=== PATIENT | female | born 1985 | race African-American/Black ===

== ENCOUNTER 2018-05-30 16:03 | Emergency (ER) | payer OTHER ==
[~2018-05-30] VITALS: Ht 157.5 cm; Wt 86.2 kg
--- NOTE | ~2018-05-30 | EKG ---
[address] [address] [facility] [employer] [address] ELECTROCARDIOGRAM REPORT Name: LUCILLE SANDY Room #: DEP Karen#: [id number] Admission: 05/30/18 Attend Phys: Discharge: 05/30/18 Date of : 81 Report #: [id number] THIS REPORT FOR: //name// [facility] ED Test Date: 2018-05-30 Test Time: 17:08:50 Pat Name: LUCILLE SANDY Department: Room: Gender: F Over [employer] Clerk: FLORES : 1985 Requested By: Yary Brooks Order Number: [id number] MD: Saw Araya Measurements Intervals Early Rate: 71 P: 41 CA: 137 QRS: 5 QRSD: 80 T: 16 QT: 374 QTc: 407 Interpretive Statements Sinus rhythm Low voltage, precordial leads No previous ECG available for comparison Electronically Signed On 05-31-2018 8:55:21 CDT by Saw Araya [email or web address] <ELECTRONICALLY SIGNED> By: Saw Araya MD, [facility] 05/31/18 0855 1708 1708 Saw Araya MD, FACC /EPI
[2018-05-30] MEDS ORDERED: NOHOMEMEDICATIONS (16:42)
[2018-05-30 17:09] LABS: URINE BILIRUBIN NEGATIVE (Negative); URINE BLOOD NEGATIVE (Negative); URINE CLARITY CLEAR; URINE COLOR YELLOW; URINE GLUCOSE-RANDOM* NEGATIVE (Negative); URINE KETONES NEGATIVE (Negative); URINE LEUKOCYTES TRACE (Negative); URINE NITRITE NEGATIVE (Negative); URINE PROTEIN (DIPSTICK) NEGATIVE (Negative); URINE SPECIFIC GRAVITY 1.025 (1.005-1.035); URINE UROBILINOGEN 0.2 E.U./dl (0.2-1.0)
[2018-05-30 18:18] LABS: ABSOLUTE NEUTROPHILS 3.4 thou/uL (1.4-8.2); BASOPHILS 0.7 % (0.0-2.0); EOSINOPHILS 1.9 % (0.0-3.0); HEMATOCRIT 26.7 % (37.0-47.0); HEMOGLOBIN 8.5 gm/dL (12.0-15.0); LYMPHOCYTES 45.9 % (24.0-44.0); MCH 21.7 pg (26.0-34.0); MCHC 31.9 g/dL (28.0-37.0); MONOCYTES 6.3 % (1.0-8.0); PLATELET COUNT 383 thou/uL (150-400); POLYS 45.2 % (36.0-66.0); RBC 3.93 mil/uL (4.20-5.00); RDW 17.6 % (10.5-14.5); WBC 7.5 thou/uL (4.0-11.0)
[2018-05-30 18:37] LABS: ANISOCYTOSIS 1+; HYPOCHROMASIA 2+; MICROCYTES 2+; OVALOCYTES OCCASIONAL
[2018-05-30 18:38] LABS: CALCIUM 8.6 mg/dL (8.5-10.1); CREATININE 0.8 mg/dL (0.6-1.0); POTASSIUM 3.5 mmol/L (3.5-5.1)
[2018-05-30 18:38] LABS: POLYCHROMASIA OCCASIONAL
[2018-05-30 18:44] LABS: ALBUMIN 3.2 g/dL (3.4-5.0); TOTAL BILIRUBIN 0.2 mg/dL (<0.1-1.0); TOTAL PROTEIN 6.9 g/dL (6.4-8.2)
[2018-05-30] MEDS ORDERED: IRON325 PO (20:02)
[2018-05-30] MEDS ORDERED: PEPCID20 MG PO (20:02)
[2018-05-30] MEDS ORDERED: PHENERGAN 25 MG25 M1 PO (20:58)
== END 2018-05-30 21:01 | disposition home or self-care (01) ==
LOC: ER 16:03
PROVIDERS: Physician Assistant
DX: R10.13 Epigastric pain (principal); D64.9 Anemia, unspecified; Z90.49 Acquired absence of other specified parts of digestive tract